=== PATIENT | female | born 1945 | race Caucasian/White ===

== ENCOUNTER 2017-01-22 16:39 | Inpatient (IN) | payer OTHER ==
[~2017-01-22] VITALS: Ht 162.6 cm; Wt 61.0 kg
--- NOTE | 2017-01-22 17:35 | DIAGNOSTIC IMAGING REPORT ---
PROCEDURE: XR CHEST 1 VIEW INDICATION: PNEUMONIA TECHNIQUE: Single view chest. 1710 hours COMPARISON: None. FINDINGS: Status post median sternotomy. Normal heart size. Clips of prior CABG. Normal aortic contour. Calcified right mediastinal lymph node. Low lung volumes with atelectatic change at the left lung base. No significant pleural effusion or pneumothorax. Intact osseous structures. IMPRESSION: 1. Plate-like left base atelectasis. 2. Status post CABG. 3. Low lung volumes.
--- NOTE | 2017-01-22 19:06 | ED CLINICAL REPORT ---
Clinical Report - Physicians/Mid Levels [facility] [address] [place] [address] 01/22/2017 16:39 Patient: STORMY PARRA Time Seen: 16:47; initial patient contact. Arrived- By ambulance. Historian- EMS personnel and family. History limited by dementia. Physical Exam limited by dementia. HISTORY OF PRESENT ILLNESS Chief Complaint: COUGH. This started about 1 week ago and is still present. It was gradual in onset. The patient has had a cough and fever. No sputum production, difficulty breathing, chills or nasal congestion or discharge. No sinus drainage. Additional history - The patient has had contact with a sick individual. Similar symptoms previously: None. Recent medical care: Not recently seen/assessed. REVIEW OF SYSTEMS No nausea, vomiting, diarrhea, abdominal pain or urinary frequency. No hematuria or difficulty with urination. All systems otherwise negative, except as recorded above. PAST HISTORY Parkinson's Disease. Dementia. Asthma. Pneumonia. ADDITIONAL SURGERIES: Carpal Tunnel Surgery. Coronary Artery Bypass Graft. Femur fracture and jesenia placement RLE. --. SOCIAL HISTORY Never smoker. No alcohol use or drug use. ADDITIONAL NOTES The nursing notes have been reviewed. PHYSICAL EXAM Vital Signs: 01/22/2017 16:42 BP: 124/83. HR: 103. RR: 20. O2 saturation: 94%. Temp: 100.6 F. Have been reviewed. Blood pressure normal. Tachycardic. Respiratory rate normal. Febrile. Oxygen saturation low. Appearance: No acute distress. Lethargic. Eyes: Eyes normal inspection. ENT: Dry mucous membranes present. No trouble handling secretions. CVS: Normal heart rate and rhythm. Heart sounds normal. Respiratory: No respiratory distress. Breath sounds normal. Abdomen: Soft and nontender. No organomegaly. Back: Normal inspection. No CVA tenderness. Skin: Skin warm and dry. Normal skin color. Extremities: No calf tenderness. No lower extremity edema. LABS, X-RAYS, AND EKG Chest X-ray: (1. Plate-like left base atelectasis. 2. Status post CABG. 3. Low lung volumes.). Views: AP. Technique: poor inspiration. The X-rays were independently viewed by me, interpreted by the radiologist and discussed with the radiologist. Prior films were not available for comparison. Laboratory Tests: UA-Culture if indicated: (JULISSA: 01/22/2017 17:14) ( [facility] 01/22/2017 17:42) Final results Test Result Flag Units (Reference) URINE COLOR YELLOW URINE APPEARANCE SL CLOUDY URINE GLUCOSE NEGATIVE (NEGATIVE) URINE BILIRUBIN NEGATIVE (NEGATIVE) URINE KETONE NEGATIVE (NEGATIVE) URINE SPECIFIC GRAVITY 1.020 (1.010-1.030) URINE PH 6.0 (5.0-8.0) URINE PROTEIN 1+ (NEGATIVE) URINE UROBILINOGEN 2.0 EU/dL (0.2-1.0) The urobilinogen reagent area may react with interferingsubstances known to react with Jose's reagent such asp-aminosalicylic acid and sulfonamides. Atypical colorreactions may be obtained in the presence of highconcentrations of p-aminobenzoic acid. The absence ofurobilinogen cannot be determined with this test. URINE NITRITE POSITIVE (NEGATIVE) URINE BLOOD TRACE-INTACT (NEGATIVE) URINE LEUK ESTERASE POSITIVE (NEGATIVE) URINE RBC NONE SEEN rbc/hpf (0-1) URINE WBC 75-100 wbc/hpf (0-1) URINE EPITHELIAL CELLS 0-1 EPI/hpf (0-5) URINE BACTERIA FEW (1+) (NONE SEEN) URINE COMMENT CULTURE INDICATED 1+ MUCUSURINE CULTURES ARE SET-UP BASED ON THE FOLLOWING CRITERIA:POSITIVE NITRITEPOSITIVE LEUKOCYTE ESTERASEGREATER THAN 10 WHITE BLOOD CELLSMODERATE (2+) OR GREATER BACTERIA CBC w Diff: (JULISSA: 01/22/2017 16:30) ( [facility] 01/22/2017 17:06) Final results Test Result Flag Units (Reference) WHITE BLOOD COUNT 12.9 H K/uL (4.5-11.5) RED BLOOD COUNT 4.82 M/uL (4.00-5.20) HEMOGLOBIN 14.1 gm/dL (12.0-16.0) HEMATOCRIT 44.5 % (36.0-46.0) MEAN CELL VOLUME 92 fL (80-100) MEAN CORPUSCULAR HGB 29 pg (26-34) MEAN CORPUSCULAR HGB CONC 32 g/dL (31-37) RED CELL DISTRIBUTION WIDTH 17.6 H % (11.6-14.8) PLATELET COUNT 190 K/uL (150-400) LYMPH % 16.0 L % (25-40) MONO % 5.3 % (3-14) GRANULOCYTE % 78.7 (53-90) [id number]: (JULISSA: 01/22/2017 16:30) ( [facility] 01/22/2017 17:38) Final results Test Result Flag Units (Reference) LACTIC ACID SEPSIS PROTOCOL 1.3 mmol/L (0.4-2.0) [id number]: (JULISSA: 01/22/2017 16:30) ( [facility] 01/22/2017 17:27) Final results Test Result Flag Units (Reference) PROCALCITONIN <0.5 ng/mL (0-0.5) PCT Concentration: Interpretation : Risk/option for action PCT <=0.5 ng/mL : Systemic : Low risk forinfection(sepsis): progression to severeis not likely. : systemic infection.Local bacterial : CAUTION-PCT levelsinfection is : below 0.5 ng/mL do notpossible. : exclude an infection,because localizedinfections (withoutsystemic signs) may beassociated with suchlow levels. If PCT ismeasured very earlyafter a bacterialchallenge (usually <6hours), these valuesmay still be low. Inthis case PCT shouldbe re-assessed 6-24hours later. PCT >0.5 and : Systemic infection: Moderate risk for<= 2 ng/mL : (sepsis) is : progression to severepossible, but : systemic infection.other conditions : The patient should beare known to : closely monitoredelevate PCT. : both clinically andby re-assessing PCTwithin 6-24 hours. PCT > 2 ng/mL : Systemic infection: High risk for(sepsis) is likely: progression to severeunless other : systemic infection.causes are known. : PCT >= 10 ng/mL : Important systemic: High likelihood ofinflammatory : severe sepsis orresponse, almost : septic shock.exclusively due to:severe bacterial :sepsis or septic :shock. : CMP: (JULISSA: 01/22/2017 16:30) ( MsgRcvd 01/22/2017 17:22) Final results Test Result Flag Units (Reference) GLUCOSE 118 H mg/dL (70-110) BUN 12 mg/dL (7-18) CREATININE 0.8 mg/dL (0.6-1.3) Estimated GFR >60 mL/min Estimated GFR- >60 mL/min Note: Persistent reduction over 3 months in eGFR<60 mL/min/1.73 m2 defines CKD. Patients with eGFR values>=60 mL/min/1.73 m2 may also have CKD if evidence ofpersistent proteinuria. Additional information may be foundat www.kidney.org. SODIUM 142 mmol/L (136-145) POTASSIUM 3.3 L mmol/L (3.5-5.1) CHLORIDE 104 mmol/L (98-107) CARBON DIOXIDE 25 mmol/L (21-32) CALCIUM 8.2 L mg/dL (8.5-10.1) TOTAL PROTEIN 6.2 L g/dL (6.4-8.2) ALBUMIN 3.0 L g/dL (3.3-5.0) BILIRUBIN, TOTAL 0.6 mg/dL (0.0-1.0) ALKALINE PHOSPHATASE 108 U/L (46-116) AST (SGOT) 22 U/L (15-37) ALT (SGPT) 27 U/L (12-78) . PROGRESS AND PROCEDURES Disposition: Admitted to Acute Care. Condition: stable. CLINICAL IMPRESSION Sepsis with altered mental status. No shock or acute organ dysfunction. Acute urinary tract infection with cystitis. INSTRUCTIONS Your Current Medications: CONTINUE TAKING THE FOLLOWING MEDICATIONS: Advair Diskus Inhalation. BusPIRone HCl Oral. Fexofenadine HCl Oral. OLANZapine Oral. Primidone Oral. Spiriva HandiHaler Inhalation. Follow-up: Screening today revealed the patient's blood pressure to be in the normal range. (Electronically signed by Jackson Alanis Dr. 01/22/2017 22:17)
--- NOTE | 2017-01-22 19:06 | ED ORDER SUMMARY ---
..... Patient: STORMY PARRA OrderSheet [facility] VisitID: [id number] [place] [address] 71y, F Registration Date/Time: 01/22/2017 ORDER SHEET Weight: 65.7 kg (stated) Allergies: Penicillins, Sulfa Antibiotics, Amoxicillin, Codeine GENERAL ORDERS: Chest 1V Urgent (16:48 01/22/2017 Kayla Oquendo) (Ack 16:50 LNations ER Tech1) (17:03 KWilliams R.N.) Blood Culture (No) (N/A) Urgent (16:48 01/22/2017 Kayla Oquendo) (Ack 16:50 LNations ER Tech1) (17:03 KWilliams R.N.) CBC w Diff Urgent (16:49 01/22/2017 Kayla Oquendo) (Ack 16:50 LNations ER Tech1) (17:03 KWilliams R.N.) CMP Urgent (16:49 01/22/2017 Kayla Oquendo) (Ack 16:50 LNations ER Tech1) (17:03 KWilliams R.N.) UA-Culture if indicated Urgent (16:49 01/22/2017 Kayla Oquendo) (Ack 16:50 LNations ER Tech1) (17:22 KWilliams R.N.) Lactic Acid for Sepsis Protocol Urgent (16:49 01/22/2017 Kayla Oquendo) (Ack 16:50 LNations ER Tech1) (17:03 KWilliams R.N.) PCT (Procalcitonin) Urgent (16:49 01/22/2017 Kayla Oquendo) (Ack 16:50 LNations ER Tech1) (17:03 KWilliams R.N.) D-Dimer Urgent (17:56 01/22/2017 Kayla Oquendo) (Ack 18:11 LNations ER Tech1) (19:58 CBradburn R.N.) MEDICATION ORDERS: IV FLUIDS: IV Saline Lock (16:49 01/22/2017 Kayla Oquendo) (17:03 KWilliams R.N.) IV NS : initial bolus none -, then 1000 mL/hr for X1 (NOW) (17:28 01/22/2017 Kayla Oquendo) (17:30 Kitty R.N.) Levofloxacin IV 750 mg/150 mL (NOW) (17:55 01/22/2017 Kayla Oquendo) (18:20 Kitty R.N.) ORDER SHEET NOTES: [Electronically signed by Herminia Barton R.N. (21:01/22/2017)] [Electronically signed by Jackson Alanis Dr. (22:17 01/22/2017)] [Electronically locked/signed by Herminia Barton R.N. (21:01/22/2017)]
--- NOTE | 2017-01-22 19:06 | ED CLINICAL REPORT ---
Clinical Report - Physicians/Mid Levels [facility] [address] [place] [address] 01/22/2017 16:39 Patient: STORMY PARRA Time Seen: 16:47; initial patient contact. Arrived- By ambulance. Historian- EMS personnel and family. History limited by dementia. Physical Exam limited by dementia. HISTORY OF PRESENT ILLNESS Chief Complaint: COUGH. This started about 1 week ago and is still present. It was gradual in onset. The patient has had a cough and fever. No sputum production, difficulty breathing, chills or nasal congestion or discharge. No sinus drainage. Additional history - The patient has had contact with a sick individual. Similar symptoms previously: None. Recent medical care: Not recently seen/assessed. REVIEW OF SYSTEMS No nausea, vomiting, diarrhea, abdominal pain or urinary frequency. No hematuria or difficulty with urination. All systems otherwise negative, except as recorded above. PAST HISTORY Parkinson's Disease. Dementia. Asthma. Pneumonia. ADDITIONAL SURGERIES: Carpal Tunnel Surgery. Coronary Artery Bypass Graft. Femur fracture and jesenia placement RLE. --. SOCIAL HISTORY Never smoker. No alcohol use or drug use. ADDITIONAL NOTES The nursing notes have been reviewed. PHYSICAL EXAM Vital Signs: 01/22/2017 16:42 BP: 124/83. HR: 103. RR: 20. O2 saturation: 94%. Temp: 100.6 F. Have been reviewed. Blood pressure normal. Tachycardic. Respiratory rate normal. Febrile. Oxygen saturation low. Appearance: No acute distress. Lethargic. Eyes: Eyes normal inspection. ENT: Dry mucous membranes present. No trouble handling secretions. CVS: Normal heart rate and rhythm. Heart sounds normal. Respiratory: No respiratory distress. Breath sounds normal. Abdomen: Soft and nontender. No organomegaly. Back: Normal inspection. No CVA tenderness. Skin: Skin warm and dry. Normal skin color. Extremities: No calf tenderness. No lower extremity edema. LABS, X-RAYS, AND EKG Chest X-ray: (1. Plate-like left base atelectasis. 2. Status post CABG. 3. Low lung volumes.). Views: AP. Technique: poor inspiration. The X-rays were independently viewed by me, interpreted by the radiologist and discussed with the radiologist. Prior films were not available for comparison. Laboratory Tests: UA-Culture if indicated: (JULISSA: 01/22/2017 17:14) [facility] Final results Test Result Flag Units (Reference) URINE COLOR YELLOW URINE APPEARANCE SL CLOUDY URINE GLUCOSE NEGATIVE (NEGATIVE) URINE BILIRUBIN NEGATIVE (NEGATIVE) URINE KETONE NEGATIVE (NEGATIVE) URINE SPECIFIC GRAVITY 1.020 (1.010-1.030) URINE PH 6.0 (5.0-8.0) URINE PROTEIN 1+ (NEGATIVE) URINE UROBILINOGEN 2.0 EU/dL (0.2-1.0) The urobilinogen reagent area may react with interferingsubstances known to react with Jose's reagent such asp-aminosalicylic acid and sulfonamides. Atypical colorreactions may be obtained in the presence of highconcentrations of p-aminobenzoic acid. The absence ofurobilinogen cannot be determined with this test. URINE NITRITE POSITIVE (NEGATIVE) URINE BLOOD TRACE-INTACT (NEGATIVE) URINE LEUK ESTERASE POSITIVE (NEGATIVE) URINE RBC NONE SEEN rbc/hpf (0-1) URINE WBC 75-100 wbc/hpf (0-1) URINE EPITHELIAL CELLS 0-1 EPI/hpf (0-5) URINE BACTERIA FEW (1+) (NONE SEEN) URINE COMMENT CULTURE INDICATED 1+ MUCUSURINE CULTURES ARE SET-UP BASED ON THE FOLLOWING CRITERIA:POSITIVE NITRITEPOSITIVE LEUKOCYTE ESTERASEGREATER THAN 10 WHITE BLOOD CELLSMODERATE (2+) OR GREATER BACTERIA CBC w Diff: (JULISSA: 01/22/2017 16:30) ( [facility]:06) Final results Test Result Flag Units (Reference) WHITE BLOOD COUNT 12.9 H K/uL (4.5-11.5) RED BLOOD COUNT 4.82 M/uL (4.00-5.20) HEMOGLOBIN 14.1 gm/dL (12.0-16.0) HEMATOCRIT 44.5 % (36.0-46.0) MEAN CELL VOLUME 92 fL (80-100) MEAN CORPUSCULAR HGB 29 pg (26-34) MEAN CORPUSCULAR HGB CONC 32 g/dL (31-37) RED CELL DISTRIBUTION WIDTH 17.6 H % (11.6-14.8) PLATELET COUNT 190 K/uL (150-400) LYMPH % 16.0 L % (25-40) MONO % 5.3 % (3-14) GRANULOCYTE % 78.7 (53-90) [id number]: (JULISSA: 01/22/2017 16:30) ( [facility] 01/[facility] 17:38) Final results Test Result Flag Units (Reference) LACTIC ACID SEPSIS PROTOCOL 1.3 mmol/L (0.4-2.0) [id number]: (JULISSA: 01/22/2017 16:30) ( PagRcvd 01/22/2017 17:27) Final results Test Result Flag Units (Reference) PROCALCITONIN <0.5 ng/mL (0-0.5) PCT Concentration: Interpretation : Risk/option for action PCT <=0.5 ng/mL : Systemic : Low risk forinfection(sepsis): progression to severeis not likely. : systemic infection.Local bacterial : CAUTION-PCT levelsinfection is : below 0.5 ng/mL do notpossible. : exclude an infection,because localizedinfections (withoutsystemic signs) may beassociated with suchlow levels. If PCT ismeasured very earlyafter a bacterialchallenge (usually <6hours), these valuesmay still be low. Inthis case PCT shouldbe re-assessed 6-24hours later. PCT >0.5 and : Systemic infection: Moderate risk for<= 2 ng/mL : (sepsis) is : progression to severepossible, but : systemic infection.other conditions : The patient should beare known to : closely monitoredelevate PCT. : both clinically andby re-assessing PCTwithin 6-24 hours. PCT > 2 ng/mL : Systemic infection: High risk for(sepsis) is likely: progression to severeunless other : systemic infection.causes are known. : PCT >= 10 ng/mL : Important systemic: High likelihood ofinflammatory : severe sepsis orresponse, almost : septic shock.exclusively due to:severe bacterial :sepsis or septic :shock. : CMP: (JULISSA: 01/22/2017 16:30) ( MsgRcvd 01/22/2017 17:22) Final results Test Result Flag Units (Reference) GLUCOSE 118 H mg/dL (70-110) BUN 12 mg/dL (7-18) CREATININE 0.8 mg/dL (0.6-1.3) Estimated GFR >60 mL/min Estimated GFR- >60 mL/min Note: Persistent reduction over 3 months in eGFR<60 mL/min/1.73 m2 defines CKD. Patients with eGFR values>=60 mL/min/1.73 m2 may also have CKD if evidence ofpersistent proteinuria. Additional information may be foundat www.kidney.org. SODIUM 142 mmol/L (136-145) POTASSIUM 3.3 L mmol/L (3.5-5.1) CHLORIDE 104 mmol/L (98-107) CARBON DIOXIDE 25 mmol/L (21-32) CALCIUM 8.2 L mg/dL (8.5-10.1) TOTAL PROTEIN 6.2 L g/dL (6.4-8.2) ALBUMIN 3.0 L g/dL (3.3-5.0) BILIRUBIN, TOTAL 0.6 mg/dL (0.0-1.0) ALKALINE PHOSPHATASE 108 U/L (46-116) AST (SGOT) 22 U/L (15-37) ALT (SGPT) 27 U/L (12-78) . PROGRESS AND PROCEDURES Disposition: Admitted to Acute Care. Condition: stable. CLINICAL IMPRESSION Sepsis with altered mental status. No shock or acute organ dysfunction. Acute urinary tract infection with cystitis. INSTRUCTIONS Your Current Medications: CONTINUE TAKING THE FOLLOWING MEDICATIONS: Advair Diskus Inhalation. BusPIRone HCl Oral. Fexofenadine HCl Oral. OLANZapine Oral. Primidone Oral. Spiriva HandiHaler Inhalation. Follow-up: Screening today revealed the patient's blood pressure to be in the normal range. (Electronically signed by Jackson Alanis Dr. 01/22/2017 22:17)
--- NOTE | 2017-01-22 19:06 | ED NURSING NOTES ---
Clinical Report - Nurses [facility] [address] [place] [address] 01/22/2017 16:39 Patient: STORMY PARRA TRIAGE Triage time 1636. Acuity: LEVEL 2. Chief Complaint: COUGH and FEVER. No acute distress. SEPSIS SCREEN: Sepsis Screen: positive. Infection suspected/documented. Heart rate greater than 90, respiratory rate greater than 20 and acute mental status change. Physician notified and protocol initiated. Temperature not greater than 38.3 degrees C (101 degrees F). ELSIE COMA SCORE: Elsie Coma Scale: 14- eyes open spontaneously (4); best verbal response- disoriented (4); best motor response- obeys commands (6). --16:52 Dano Dave R.N. 16:42 01/22/17. BP: 124/83. HR: 103. RR: 20. O2 saturation: 94% on nasal cannula at 4 liters/minute. Temp: 100.6 F. Pain level now 0/10. --16:52 Dano Dave R.N. Weight: 65.7 kg stated. Height/Length: 64 inches Per Patient. BMI: 24.9. --16:45 Dano Dave R.N. Medications Advair Diskus Inhalation. --16:48 Dano Dave R.N. BusPIRone HCl Oral. --16:49 Dano Dave R.N. Fexofenadine HCl Oral. --16:49 Dano Dave R.N. OLANZapine Oral. --16:49 Dano Dave R.N. Primidone Oral. --16:49 Dano Dave R.N. Spiriva HandiHaler Inhalation. --16:49 Dano Dave R.N. Medication/allergy information source: the patient's family. --16:52 Dano Dave R.N. Allergies Penicillins. --16:49 Dano Dave R.N. Sulfa Antibiotics. --16:49 Dano Dave R.N. Amoxicillin. --16:49 Dano Dave R.N. Codeine. --16:50 Dano Dave R.N. History Arrived by EMS. Historian: EMS and family. Accompanied by family. Primary physician (raymundo). ( code sepsis. presented to [facility] with cold x9 days, 100 degree temp, given 1 gram tylenol at clinic. rhonchi per medics. Daughter states patient is markedly weaker than baseline). Onset. (9 days ago). Treatment MEDICAL TECHNOLOGIST MICROBIOLOGY: Took Tylenol. (1 gram at [facility]). EMS treatment MEDICAL TECHNOLOGIST MICROBIOLOGY verbally communicated. See EMS report. IV fluid given (500 mL bolus). BP: 102/60. HR: 110. RR: 16. Temp: 100. O2 saturation: 94 % on oxygen (at 4 liters/minute). Upon arrival patient awake and lethargic. SOCIAL HX: Never smoker. No alcohol use or drug use. ABUSE ASSESSMENT: No report of abuse. NUTRITIONAL RISK ASSESSMENT: The nutritional risk assessment revealed no deficiencies. FUNCTIONAL ASSESSMENT: Functional assessment: no impairments noted. LEARNING NEEDS ASSESSMENT: The learning needs assessment revealed no barriers. FALL RISK ASSESSMENT: Fall risk assessment completed. Risk factors identified include patient age greater than 65 years. SKIN INTEGRITY ASSESSMENT: Skin integrity risk assessment completed. No skin integrity risk identified. --16:52 Dano Dave R.N. PROBLEMS: Parkinson's Disease. Dementia. Asthma. Pneumonia. --16:52 Dano Dave R.N. ADDITIONAL SURGERIES: Carpal Tunnel Surgery. Coronary Artery Bypass Graft. Femur fracture and jesenia placement RLE. --16:52 Dano Dave R.N. Interventions ID band on patient. To treatment room. --16:52 Dano Dave R.N. SEPSIS protocol initiated. --16:52 Dano Dave R.N. 16:29 01/22/2017 Site #1 started prior to arrival by EMS via IV in the right with an 20g angiocath, with aseptic technique and good blood return; one attempt. Saline lock flushed with 10 mL saline. --16:44 Dano Dave R.N. PHYSICAL ASSESSMENT To room via stretcher. GENERAL / NEURO / PSYCH: (lethargic). She is pale, is disoriented and has poor eye contact. The patient is disoriented to situation. RESPIRATORY: Mild respiratory distress. Cough. CVS: Cardiac rhythm: sinus tachycardia. Capillary refill is greater than 2 seconds. GI / : Abdomen soft. SKIN: Skin is warm and dry. --16:54 Dano Dave R.N. NURSING PROGRESS NOTES The plan of care for this patient has been created. Patient gowned. Head of bed elevated. Call light placed in reach. Bed placed in lowest position. Brakes of bed on. Patient ready for evaluation- chart flagged. --16:55 Dano Dave R.N. 16:54 01/22/17. BP: 135/71. HR: 101. RR: 24. O2 saturation: 95%. Pain level now 0/10. --16:55 Dano Dave R.N. 16:54 01/22/2017 Site #2 started via IV in the right antecubital space with an 20g angiocath, with aseptic technique and good blood return; one attempt. Blood drawn: rainbow set and cultures x1. Labeled in the presence of the patient and sent to the lab. Saline lock flushed with 10 mL saline. --17:04 Dano Dave R.N. 17:22 01/22/17. BP: 131/69. HR: 99. RR: 21. O2 saturation: 95% on nasal cannula at 4 liters/minute. Temp: 37.6 C. Pain level now 0/10. --17:23 Dano Dave R.N. Reassessment after oxygen administered and intervention. She is resting quietly. ( daughter at bedside, updated on plan of care). --17:23 Dano Dave R.N. Cardiac rhythm: normal sinus rhythm. --17:23 Dano Dave R.N. 17:10. 14 fr temperature sensing starkey catheter for close monitoring of sepsis. Data sent to monitor. During procedure hand hygiene observed and sterile equipment and aseptic technique used. Return of 150 mL yellow-colored clear urine; odor is normal; attached to bedside drainage bag positioned below the bladder and secured with stabilization device. She tolerated procedure well. Patient ID band checked for patient name and birthdate: family confirmed. Catheterized urine collected with return of yellow-colored clear urine; odor is normal; sample sent to lab for urinalysis and culture. Specimen labeled in the presence of the patient. --17:25 Dano Dave R.N. ( NS liter from EMS completed at 1650). --17:29 Dano Dave R.N. 16:51 01/22/2017 Started bag #2 1000 mL IV Fluids IV NS (Saline); at 999 mL/hr over 1 hour(s) via site #1. Allergies verified and confirmed 5 rights. IV patency established. IV site checked: no pain, redness, or swelling. IV flushed thoroughly pre- and post-medication administration. --17:30 Dano Dave R.N. Cardiac rhythm: sinus tachycardia. --17:32 Dano Dave R.N. 17:30 01/22/17. BP: 131/69. HR: 102. RR: 22. O2 saturation: 93% on nasal cannula at 4 liters/minute. Temp: 37.9 C. Pain level now 0/10. --17:32 Dano Dave R.N. 18:00 01/22/2017 IV Fluids IV NS Discontinued: bag #2 infused. Total amount infused: 1000 mL. IV patency established. IV site checked: no pain, redness, or swelling. IV flushed thoroughly. --18:20 Dano Dave R.N. 18:15 01/22/2017 Started 750 mg of Levofloxacin IVPB in bag #1 150 mL; at 100 mL/hr over 1.5 hour(s) via site #1 via IV pump. Allergies verified and confirmed 5 rights. IV patency established. IV site checked: no pain, redness, or swelling. IV flushed thoroughly pre- and post-medication administration. Completed per protocol. --18:20 Dano Dave R.N. Care transferred and report given (CIARA Hope). --19:08 Dano Dave R.N. 19:59 01/22/2017 Levofloxacin IVPB Discontinued: completed. Total amount infused: 150 mL. IV patency established. IV site checked: no pain, redness, or swelling. IV flushed thoroughly. --19:59 Herminia Barton R.N. 20:00 01/22/17. BP: 127/68 taken on the left arm, while lying. HR: 92 (regular and normal rate). RR: 18 (regular). O2 saturation: 95%. Temp: 37.4 C. Pain level now: 0/10. --20:15 Herminia Barton R.N. The patient reports no complaints and she is calm and resting quietly. ( family at bedside, no distress noted, will continue to monitor). RESPIRATORY: No respiratory distress. Call light placed in reach. --20:15 Herminia Barton R.N. 21:14 01/22/17. BP: 117/66 taken on the right arm, while lying. HR: 92 (regular and normal rate). RR: 16 (regular and unlabored). O2 saturation: 93%. Temp: 37.2 C. Pain level now: 0/10. Additional comments: temjake starkey. --21:16 Herminia Barton R.N. The patient is calm and resting quietly. Overall patient status is improved. ( resting quietly no distress noted). RESPIRATORY: No respiratory distress. Breath sounds normal. SKIN: Skin is warm and dry. Skin color within normal limits. --21:16 Herminia Barton R.N. 21:17 01/22/2017 Site #[address] upon admission; patent, no pain and no signs of infection or infiltration. Good blood return present. Flushed with 10 mL saline; flushes easily. --21:17 Herminia Barton R.N. 21:17 01/22/2017 Site #[address] upon admission; patent, no pain and no signs of infection or infiltration. Good blood return present. Flushed with 10 mL saline; flushes easily. --21:17 Herminia Barton R.N. 21:01/22/2017 IV Saline Lock Drip IV Continued: upon admission at the rate of 0 mL/hr. 0 mL remaining bag #1. IV patency established. IV site checked: no pain, redness, or swelling. IV flushed thoroughly. --:17 Herminia Barton R.N. Intake & Output Urine: 400 mL 21:24, with return of azucena-colored clear urine; attached to urimeter. --:25 Herminia Barton R.N. DISPOSITION / DISCHARGE Departure time: :27. Admitted to Acute Care (206 21:25). Transported via stretcher by tech with O2. Report was given to a nurse via a phone call. Report included patient's care, treatment, medications, reviewed medication reconcilliation, and condition (including any recent changes or anticipated changes). All questions were answered. Report was acknowledged and care was transferred. (Johana FRANK @[id number]). Patient's personal items; items were given to the family. --:27 Herminia Barton R.N. 21:25 01/22/17. BP: deferred. HR: deferred. RR: deferred. O2 saturation: deferred. Temp: deferred. Pain level now deferred. --:27 Herminia Barton R.N. Locked/Released at 01/22/2017 21:28 by Herminia Barton R.N.
--- NOTE | 2017-01-22 19:06 | ED ORDER SUMMARY ---
..... Patient: STORMY PARRA OrderSheet [facility] VisitID: [id number] [place] [address] 71y, F Registration Date/Time: 01/22/2017 ORDER SHEET Weight: 65.7 kg (stated) Allergies: Penicillins, Sulfa Antibiotics, Amoxicillin, Codeine GENERAL ORDERS: Chest 1V Urgent (16:48 01/22/2017 Kayla Oquendo) (Ack 16:50 LNations ER Tech1) (17:03 KWilliams R.N.) Blood Culture (No) (N/A) Urgent (16:48 01/22/2017 Kayla Oquendo) (Ack 16:50 LNations ER Tech1) (17:03 KWilliams R.N.) CBC w Diff Urgent (16:49 01/22/2017 Kayla Oquendo) (Ack 16:50 LNations ER Tech1) (17:03 KWilliams R.N.) CMP Urgent (16:49 01/22/2017 Kayla Oquendo) (Ack 16:50 LNations ER Tech1) (17:03 KWilliams R.N.) UA-Culture if indicated Urgent (16:49 01/22/2017 Kayla Oquendo) (Ack 16:50 LNations ER Tech1) (17:22 KWilliams R.N.) Lactic Acid for Sepsis Protocol Urgent (16:49 01/22/2017 Kayla Oquendo) (Ack 16:50 LNations ER Tech1) (17:03 KWilliams R.N.) PCT (Procalcitonin) Urgent (16:49 01/22/2017 Kayla Oquendo) (Ack 16:50 LNations ER Tech1) (17:03 KWilliams R.N.) D-Dimer Urgent (17:56 01/22/2017 Kayla Oquendo) (Ack 18:11 LNations ER Tech1) (19:58 CBradburn R.N.) MEDICATION ORDERS: IV FLUIDS: IV Saline Lock (16:49 01/22/2017 Kayla Oquendo) (17:03 KWilliams R.N.) IV NS : initial bolus none -, then 1000 mL/hr for X1 (NOW) (17:28 01/22/2017 Kayla Oquendo) (17:30 Kitty R.N.) Levofloxacin IV 750 mg/150 mL (NOW) (17:55 01/22/2017 Kayla Oquendo) (18:20 Kitty R.N.) ORDER SHEET NOTES: [Electronically signed by Herminia Barton R.N. (21:01/22/2017)] [Electronically signed by Jackson Alanis Dr. (22:17 01/22/2017)] [Electronically locked/signed by Herminia Barton R.N. (21:01/22/2017)]
--- NOTE | 2017-01-22 21:26 | Progress Note ---
Subjective General Admission History and Physical Examination Acute care inpatient on telemetry Patient Name: Patricia George Admission Date: January 22, 2017 Primary Care Provider: Dr. Tristan Rosas MD ([place]) Attending Physician: Rigoberto Myers M.D. Admitting Physician: Rigoberto Myers M.D. Code Status: No code Room: SUBJECTIVE Historian: Daughter or PONazario Eason Reliability: Reliability. Patient with a few spoken words Chief Complaint: Weakness Dyspnea Activities less than Baseline History of Present Illness: The patient is a 71-year-old white female with a past medical history of asthma and obstructive lung disease allergies, coronary artery disease (status post CABG 7 vessel greater than 20 years ago), Parkinson's disease, dementia who is admitted with cough, dyspnea rapid breathing and in addition she's had a decline from her normal baseline. Daughter reports that she's been unable to perform general activities that she was performing weeks prior. Seems to be weak needing more assistance. Over a week ago had a few bouts of diarrhea. Decreasing urination. Seems to be more dyspneic having more difficult time with breathing. Seems to be having rapid breathing and associated cough. Daughter reports that the cough has been rattly and wet concern for progressive changes in her airway. Normally under good airway control with current inhalers; but over the past week having decline in her airway. Patient was seen in the [facility] ED. Patient was found to be hypoxic on room air therefore she was started on oxygen therapy to bring her sats greater than 92%. Patient is not on home O2. Patient was also given nebulized albuterol and ipratropium with mild benefit. Labs show an elevated white count, vital showing tachycardia, tachypnea, and fever 100.6. Patient was ruled as a service with potential urosepsis. The urinalysis showing nitrates and positive for leuk esterase. [facility] ED evaluation was consistent with URI, UTI, potential urosepsis (meeting sirs criteria), The majority of the history is through the patient's daughter . Normally patient is able to get up and out of bed to use the restroom eat on her own, and carry on limited conversation. The past week she's had a decline in her normal function. Patient was diagnosed to mention more than 6 years ago. Patient is recently been under the care of her youngest daughter Yumi for general needs. Patient's daughter Yumi is a POA along with her sister Lakesha in [place] who also shares the rights. Patient has a history of Parkinson's disease with limited treatment options. Patient is also treated for asthma. PAST MEDICAL HISTORY Illnesses: 1. Asthma obstructive lung disease 2. Dementia 3. Parkinson's disease Allergies: 1. No known drug allergies Medications: 1. Buspirone 7.5 mg by mouth twice a day 2. Fexofedadine 180 mg by mouth daily 3. Olanzapine 5 mg 1 tab by mouth twice a day 4. Advair 500/50 one puff twice per day 5. Fluticasone nasal spray 1 puff each nostril daily 6. Spiriva 2 puffs by mouth each day 7. Primidone 50 mg by mouth twice a day Surgery: 1. Carpal tunnel surgery 2. Coronary artery bypass surgery approximately 20 years ago 7 vessel 3. Femur fracture jesenia placement right side 4. Hip fracture right side prosthetic placement Injuries: 1. Injury to the hip and leg Hospitalizations: 1. Hospitalization for the illnesses and injuries sustained as noted above. FAMILY HISTORY Parents: 1. Father, father, passed from illness related to heart. 2. Mother passed at the age of 91; Alzheimer's; complications from a traumatic fall Children: 1. 2 grown children Daughter Yumi is POA, lives in [place] daughter Lakesha lives in [place] Other significant family history: Unknown SOCIAL HISTORY 1. Marital Status: 2. Synagogue: unknown 3. Education: High school 4 years college 4. 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 Occupational health exposures: unknown HABITS 1. Tobacco: none 2. Drugs: none 3. Alcohol: none 4. Caffeine: unknown HEALTH SUPERVISION Item/Test Followed by Dr. Alison Shields Health supervision measures are unknown. IMMUNIZATIONS: Daughter states that they do not promote vaccinations ADVANCED DIRECTIVES: 1. Living well: Daughter reports that there is apparently living well. 2. POLST: unavailable 3. Code Status: No code; short-term use of antibiotics short-term IV fluids Patient's wishes are not to be under any form of mechanical ventilation or to have resuscitative measures. 4. Durable Power Data Base Design Analyst Health care: Lakesha Eason (daughter) 5. Donor card: Available donor card REVIEW OF SYSTEMS Remarkable for those things stated in the history of present illness and past medical history. Review systems is limited due to patient's mood and verbalization ROS Constitutional Weakness, Malaise. Denies: Chills. ENT Other (cough). Respiratory Cough. Denies: Wheezing. Gastrointestinal Diarrhea. Denies: Melena, Hematochezia. Skin Denies: Rash. Physical Exam Vital Signs / I&Os BP: 124/83. HR: 103. RR: 20. O2 saturation: 94%. Temp: 100.6 F. General Appearance Oriented X3, Cooperative HEENT Moist mucous membranes Lungs Clear to auscultation, tachypnea, shallow respiration transmitted breath sounds No refills rhonchi or wheeze Neck No JVD, No masses Cardiovascular No murmurs, gallops, rubs, tachycardia Abdomen Soft, No tenderness, mild distention Extremities No clubbing, No edema Skin No Rashes Neurological No lateralizing signs Psych/Mental Status Mood normal, Confused LAB Results Laboratory Tests 01/22 01/22 01/22 01/22 1630 1630 1630 1655 Chemistry Plasma Sodium (136 - 145 mmol/L) 142 Plasma Potassium (3.5 - 5.1 mmol/L) 3.3 Plasma Chloride (98 - 107 mmol/L) 104 CO2 (Enzymatic) (21 - 32 mmol/L) 25 BUN (7 - 18 mg/dL) 12 Creatinine (0.6 - 1.3 mg/dL) 0.8 Est GFR ( Amer) (mL/min) >60 Est GFR (Non-Af Amer) (mL/min) >60 Glucose (70 - 110 mg/dL) 118 Lactic Acid (0.4 - 2.0 mmol/L) 1.3 Plasma Calcium (8.5 - 10.1 mg/dL) 8.2 Total Bilirubin (0.0 - 1.0 mg/dL) 0.6 AST (15 - 37 U/L) 22 ALT (12 - 78 U/L) 27 Alkaline Phosphatase (46 - 116 U/L) 108 Total Protein (6.4 - 8.2 g/dL) 6.2 Albumin (3.3 - 5.0 g/dL) 3.0 Procalcitonin (0 - 0.5 ng/mL) <0.5 Coagulation D-Dimer, Quantitative (0.27 - 0.52 ug/mLFEU) 0.42 Hematology WBC (4.5 - 11.5 K/uL) 12.9 RBC (4.00 - 5.20 M/uL) 4.82 Hgb (12.0 - 16.0 gm/dL) 14.1 Hct (36.0 - 46.0 %) 44.5 MCV (80 - 100 fL) 92 MCH (26 - 34 pg) 29 RDW (11.6 - 14.8 %) 17.6 Gran % (53 - 90) 78.7 Lymph % (Auto) (25 - 40 %) 16.0 [place] % (Auto) (3 - 14 %) 5.3 Plt Count, EDTA (150 - 400 K/uL) 190 PUBS MCHC (31 - 37 g/dL) 32 01/22 1714 Urines Urine Color YELLOW Urine Appearance SL CLOUDY Urine pH (5.0 - 8.0) 6.0 Ur Specific [place] (1.010 - 1.030) 1.020 Urine Protein (NEGATIVE) 1+ Urine Ketones (NEGATIVE) NEGATIVE Urine Blood (NEGATIVE) TRACE-INTACT Urine Nitrite (NEGATIVE) POSITIVE Urine Bilirubin (NEGATIVE) NEGATIVE Urine Urobilinogen (0.2 - 1.0 EU/dL) 2.0 Ur Leukocyte Esterase (NEGATIVE) POSITIVE Urine RBC (0 - 1 rbc/hpf) NONE SEEN Urine WBC (0 - 1 wbc/hpf) 75-100 Ur Epithelial Cells (0 - 5 EPI/hpf) 0-1 Urine Bacteria (NONE SEEN) FEW (1+) Urine Glucose (NEGATIVE) NEGATIVE Urine Comment CULTURE INDICATED Microbiology Date/Time Procedure - Status Source Growth 01/22 1714 Urine Culture - RECD URINE CATH 01/22 1655 Blood Culture - RECD BLOOD 01/22 1650 Blood Culture - RECD BLOOD Imaging Chest x-ray 1. Plate-like left base atelectasis. 2. Status post CABG. 3. Low lung volumes. Assessment and Plan Problem List 1. Hypoxia Plan Patient with recent symptomatic event. Likely infection involving upper airway and urine Patient SIRS criteria for probable urosepsis. Progressive respiratory illness and changes in general status from her normal baseline of asthma. Seen to require oxygen on admission. Patient hypoxic on room air. Plan to wean oxygen and maintain sats above 90% Continue with the DuoNeb's and albuterol as needed. Solu-Medrol 60 mg 3 times a day Ceftriaxone and Levaquin for airway. 2. Dyspnea Plan Patient found to be dyspneic on admission. Maintaining well on oxygen therapy Duo nebs every 6 hours. Continue with the Spiriva and the Advair has home-based measures for controlling asthma. 3. SIRS with acute organ dysfunction due to infectious process Plan Seen with fever and tachypnea tachycardia on admission Antibiotics 2 including ceftriaxone and Levaquin. Complete 7 days; following cultures Patient also found to have a UTI, awaiting cultures and sensitivities. Coverages at optimal 4. Sepsis Plan Defining urinary tract infection. Consider sepsis urologic consultation. Coverage appropriate. The patient met sepsis criteria with fever and elevated white count tachypnea and tachycardia and symptomatic response to illness. Need to improve patient above current status to normal baseline, prior to discharge. Patient's care at home is appropriate. 5. Parkinsons Plan History of Parkinson's; resistant to treatment. We'll continue with the patient's home formulary. Patient with declining mental status changes. Consider Lewey body dementia 6. Asthma Plan Discussed above. Hydrated. Continue to maintain oxygen saturations above 92%. Weaning O2 when appropriate. DuoNeb's every 6 hours Continue the Spiriva and the Advair. 7. Dementia Plan Patient with prolonged history of dementia in decline. Patient currently is on only antidepressant and a barbiturate for her mood and declining memory. Continue with the primidone as a oral medication from home Continue with the buspirone taken twice per day. Taking the olanzapine twice.. We'll watch and follow trends in mood. She has a higher level of activity currently seen. Patient will attempt to maintain baseline activity prior to discharge. Patient has promoted her living will to her family members both daughters Yumi Crowder. Patient before decline in self-care asked that she not be under life- sustaining measures. Current status: Fair poor Anticipated discharge date: 2-3 days Anticipated discharge placement: Home Patient care time: Time spent in chart review, patient interview, physical exam, CPOE, and care documentation: 70 minutes Visit to patient today: 1 Complexity of care: Moderate E&M Codes Admission: Inpt-High/23214 Urine Blood (NEGATIVE) TRACE-INTACT Urine Nitrite (NEGATIVE) POSITIVE Urine Bilirubin (NEGATIVE) NEGATIVE Urine Urobilinogen (0.2 - 1.0 EU/dL) 2.0 Ur Leukocyte Esterase (NEGATIVE) POSITIVE Urine RBC (0 - 1 rbc/hpf) NONE SEEN Urine WBC (0 - 1 wbc/hpf) 75-100 Ur Epithelial Cells (0 - 5 EPI/hpf) 0-1 Urine Bacteria (NONE SEEN) FEW (1+) Urine Glucose (NEGATIVE) NEGATIVE Urine Comment CULTURE INDICATED Microbiology Date/Time Procedure - Status Source Growth 01/22 171 Urine Culture - RECD URINE CATH 01/22 1655 Blood Culture - RECD BLOOD 01/22 165 Blood Culture - RECD BLOOD Imaging Chest x-ray 1. Plate-like left base atelectasis. 2. Status post CABG. 3. Low lung volumes.
[2017-01-22 21:45] VITALS: BP 99/54
[2017-01-22] MEDS ORDERED: BUSPIRONE HCL7.5 MG PO (22:00)
[2017-01-22] MEDS ORDERED: MYSOLINE50 MG PO (22:01)
[2017-01-22] MEDS ORDERED: ADVAIR DISKU1 INH (22:02)
[2017-01-22] MEDS ORDERED: OLANZAPINE5 MG PO (22:02)
--- NOTE | 2017-01-22 22:18 | ED MED RECONCILIATION SUMMARY ---
Patient: STORMY PARRA Medication Reconciliation Report [facility] VisitID: [id number] [address] [place] [address] 71y, F Registration Date/Time: 01/22/2017 Weight: 65.7 kg Height/Length: 64 in. BMI: 24.9 ALLERGIES: Amoxicillin, Codeine, Penicillins, Sulfa Antibiotics The patient's Home Medications are listed below: CONTINUE TAKING THE FOLLOWING MEDICATIONS: Advair Diskus Inhalation BusPIRone HCl Oral Fexofenadine HCl Oral OLANZapine Oral Primidone Oral Spiriva HandiHaler Inhalation The source(s) of the original Home Medication information: patient's family member The following Medications were given to the patient in the Emergency Department: IV NS IV Fluids bolus 0, then 999 mL/hr, administered: 01/22/2017 4:51:00 PM Levofloxacin [IVPB] IVPB bolus 0, then 750 mg 100 mL/hr, administered: 01/22/2017 6:15:00 PM The following Medications were prescribed to the patient: None.
--- NOTE | 2017-01-22 22:18 | ED MAR SUMMARY ---
..... Medication Administration Record [facility] [address] [place] [address] Patient: STORMY PARRA Visit ID: [id number] 71y, F Weight: 65.7 kg Height/Length: 64 in BMI: 24.9 ALLERGIES: Codeine, Amoxicillin, Sulfa Antibiotics, Penicillins Start 16:51 01/22/2017 Dano Dave RGabriel., Stop 18:00 01/22/2017 Dano Dave R.N. Medication Administered: IV NS (SALINE), Dose: IV Fluids over 1 hour(s), Rate: 999 mL/hr, Dispensed: 1000 mL bag, Site: #1 right. Medication Ordered: IV NS : initial bolus none -, then 1000 mL/hr for X1 (NOW). Start 18:15 01/22/2017 Dano Dave R.N., Stop 19:59 01/22/2017 Herminia Barton RGabriel. Medication Administered: LEVOFLOXACIN [IVPB], Dose: 750 mg IVPB over 1.5 hour(s), Rate: 100 mL/hr, Dispensed: 150 mL bag, Site: #1 right. Medication Ordered: Levofloxacin IV 750 mg/150 mL (NOW).
--- NOTE | 2017-01-22 22:18 | ED DISCHARGE INSTRUCTIONS ---
Patient: STORMY PARRA General Instructions [facility] VisitID: [id number] [address] [place] [address] 71y, F Registration Date/Time: 01/22/2017 Sepsis with altered mental status. No shock or acute organ dysfunction. Acute urinary tract infection with cystitis. INSTRUCTIONS Your Current Medications: CONTINUE TAKING THE FOLLOWING MEDICATIONS: Advair Diskus Inhalation. BusPIRone HCl Oral. Fexofenadine HCl Oral. OLANZapine Oral. Primidone Oral. Spiriva HandiHaler Inhalation. Follow-up: Screening today revealed the patient's blood pressure to be in the normal range. (Electronically signed by Jackson Alanis Dr. 01/22/2017 22:17)
--- NOTE | 2017-01-22 22:18 | ED MED RECONCILIATION SUMMARY ---
Patient: STORMY PARRA Medication Reconciliation Report [facility] VisitID: [id number] [address] [place] [address] 71y, F Registration Date/Time: 01/22/2017 Weight: 65.7 kg Height/Length: 64 in. BMI: 24.9 ALLERGIES: Amoxicillin, Codeine, Penicillins, Sulfa Antibiotics The patient's Home Medications are listed below: CONTINUE TAKING THE FOLLOWING MEDICATIONS: Advair Diskus Inhalation BusPIRone HCl Oral Fexofenadine HCl Oral OLANZapine Oral Primidone Oral Spiriva HandiHaler Inhalation The source(s) of the original Home Medication information: patient's family member The following Medications were given to the patient in the Emergency Department: IV NS IV Fluids bolus 0, then 999 mL/hr, administered: 01/22/2017 4:51:00 PM Levofloxacin [IVPB] IVPB bolus 0, then 750 mg 100 mL/hr, administered: 01/22/2017 6:15:00 PM The following Medications were prescribed to the patient: None.
--- NOTE | 2017-01-22 22:18 | ED DISCHARGE INSTRUCTIONS ---
Patient: STORMY PARRA General Instructions [facility] VisitID: [id number] [address] [place] [address] 71y, F Registration Date/Time: 01/22/2017 Sepsis with altered mental status. No shock or acute organ dysfunction. Acute urinary tract infection with cystitis. INSTRUCTIONS Your Current Medications: CONTINUE TAKING THE FOLLOWING MEDICATIONS: Advair Diskus Inhalation. BusPIRone HCl Oral. Fexofenadine HCl Oral. OLANZapine Oral. Primidone Oral. Spiriva HandiHaler Inhalation. Follow-up: Screening today revealed the patient's blood pressure to be in the normal range. (Electronically signed by Jackson Alanis Dr. 01/22/2017 22:17)
--- NOTE | 2017-01-22 22:18 | ED MAR SUMMARY ---
..... Medication Administration Record [facility] [address] [place] [address] Patient: STORMY PARRA Visit ID: [id number] 71y, F Weight: 65.7 kg Height/Length: 64 in BMI: 24.9 ALLERGIES: Codeine, Amoxicillin, Sulfa Antibiotics, Penicillins Start 16:51 01/22/2017 Dano Dave RGabriel., Stop 18:00 01/22/2017 Dano Dave R.N. Medication Administered: IV NS (SALINE), Dose: IV Fluids over 1 hour(s), Rate: 999 mL/hr, Dispensed: 1000 mL bag, Site: #1 right. Medication Ordered: IV NS : initial bolus none -, then 1000 mL/hr for X1 (NOW). Start 18:15 01/22/2017 Dano Dave R.N., Stop 19:59 01/22/2017 Herminia Barton RGabriel. Medication Administered: LEVOFLOXACIN [IVPB], Dose: 750 mg IVPB over 1.5 hour(s), Rate: 100 mL/hr, Dispensed: 150 mL bag, Site: #1 right. Medication Ordered: Levofloxacin IV 750 mg/150 mL (NOW).
[2017-01-23 02:10] VITALS: BP 107/67
[2017-01-23] MEDS ORDERED: FEXOFENADINE H180 MG (03:47)
[2017-01-23] MEDS ORDERED: FLUTICASONE (03:48)
[2017-01-23] MEDS ORDERED: SPIRIVA (03:48)
--- NOTE | 2017-01-23 05:21 | Progress Note ---
Subjective General Note Date: January 23, 2017 Admission Date: January 22 2017 Hospital Day: 1 Status: Inpatient, ACU Advanced Directive: No CODE Room: 206 Admission History: The patient is a 71 yo White Female with a past medical history of asthma and obstructive lung disease allergies, coronary artery disease (status post CABG 7 vessel greater than 20 years ago), Parkinson's disease, dementia who is admitted with cough, dyspnea rapid breathing. Is also reported that she had a overall decline in activities of daily living baseline sharply over the past week. Patient was found to be more dyspneic if occult time with breathing decreased urination and intermittent diarrhea. Patient is admitted with criteria for SIRS ; urosepsis hypoxia on room air and respiratory distress. Addition functional decline in overall normal living baseline. For other history present illness, past medical history, family history, social history, review of systems, and admission physical examination please see the patient's history and physical examination and ER visit note in the patient's medical record. Subjective Patient is seen today at bedside. No reported acute overnight events. Physical Exam Vital Signs / I&Os Vital Signs Date Time Temp Pulse Resp B/P Pulse O2 O2 Flow FiO2 Ox Delivery Rate 01/23 0210 97.7 81 20 107/67 96 Nasal 3.0 Cannula 01/22 2359 Nasal 3.0 Cannula 01/22 2338 86 01/22 2209 3.0 01/22 2145 99.0 90 20 99/54 92 Nasal 3.0 Cannula I&O 01/22 0800 01/22 1600 01/23 0000 Intake Total 0 Output Total 0 Balance 0 General Appearance Cooperative LAB Results Laboratory Tests 01/22 01/22 01/22 01/22 1630 1630 1630 1655 Chemistry Plasma Sodium (136 - 145 mmol/L) 142 Plasma Potassium (3.5 - 5.1 mmol/L) 3.3 Plasma Chloride (98 - 107 mmol/L) 104 CO2 (Enzymatic) (21 - 32 mmol/L) 25 BUN (7 - 18 mg/dL) 12 Creatinine (0.6 - 1.3 mg/dL) 0.8 Est GFR ( Amer) (mL/min) >60 Est GFR (Non-Af Amer) (mL/min) >60 Glucose (70 - 110 mg/dL) 118 Lactic Acid (0.4 - 2.0 mmol/L) 1.3 Plasma Calcium (8.5 - 10.1 mg/dL) 8.2 Total Bilirubin (0.0 - 1.0 mg/dL) 0.6 AST (15 - 37 U/L) 22 ALT (12 - 78 U/L) 27 Alkaline Phosphatase (46 - 116 U/L) 108 Total Protein (6.4 - 8.2 g/dL) 6.2 Albumin (3.3 - 5.0 g/dL) 3.0 Procalcitonin (0 - 0.5 ng/mL) <0.5 Cancelled Coagulation D-Dimer, Quantitative (0.27 - 0.52 ug/mLFEU) 0.42 Hematology WBC (4.5 - 11.5 K/uL) 12.9 RBC (4.00 - 5.20 M/uL) 4.82 Hgb (12.0 - 16.0 gm/dL) 14.1 Hct (36.0 - 46.0 %) 44.5 MCV (80 - 100 fL) 92 MCH (26 - 34 pg) 29 RDW (11.6 - 14.8 %) 17.6 Gran % (53 - 90) 78.7 Lymph % (Auto) (25 - 40 %) 16.0 [place] % (Auto) (3 - 14 %) 5.3 Plt Count, EDTA (150 - 400 K/uL) 190 PUBS MCHC (31 - 37 g/dL) 32 01/22 01/22 1714 2350 Chemistry Procalcitonin (0 - 0.5 ng/mL) <0.5 Urines Urine Color YELLOW Urine Appearance SL CLOUDY Urine pH (5.0 - 8.0) 6.0 Ur Specific [place] (1.010 - 1.030) 1.020 Urine Protein (NEGATIVE) 1+ Urine Ketones (NEGATIVE) NEGATIVE Urine Blood (NEGATIVE) TRACE-INTACT Urine Nitrite (NEGATIVE) POSITIVE Urine Bilirubin (NEGATIVE) NEGATIVE Urine Urobilinogen (0.2 - 1.0 EU/dL) 2.0 Ur Leukocyte Esterase (NEGATIVE) POSITIVE Urine RBC (0 - 1 rbc/hpf) NONE SEEN Urine WBC (0 - 1 wbc/hpf) 75-100 Ur Epithelial Cells (0 - 5 EPI/hpf) 0-1 Urine Bacteria (NONE SEEN) FEW (1+) Urine Glucose (NEGATIVE) NEGATIVE Urine Comment CULTURE INDICATED Microbiology Date/Time Procedure - Status Source Growth 01/22 1714 Urine Culture - RECD URINE CATH 01/22 1655 Blood Culture - RECD BLOOD 01/22 1650 Blood Culture - RECD BLOOD Assessment and Plan Problem List 1. Hypoxia Plan Patient found to be hypoxic on room air and respiratory distress. Continue the O2 therapy. Patient has not needed advancement and oxygen support for respiratory support. Patient is appropriate on antibiotics. Patient has drug allergy to penicillins and sulfa drugs. Caution with additional antibiotic support. 2. Dyspnea Plan Patient found to be dyspneic with activity. Physical therapy assessment to review her ability to transfer and transition Consider short-term rehabilitation 3. SIRS with acute organ dysfunction due to infectious process Plan Patient met criteria for SIRS. Patient since has had marked improvement in parameters. She is no Longer febrile. Patient with near normalized respiratory effort and cardiac function 4. Sepsis Plan Potential sepsis; urological Following cultures. So far there is been no growth Continue with IV Levaquin Holding Rocephin. 5. Parkinsons Plan Parkinson's disease. Dementia with movement disorder Challenges with general overall care. Holding the primidone at this time; consider titrating the olanzapine. 6. Asthma Plan Airway control is better managed. Light dose of Solu-Medrol. Continue the IV antibiotics. Continue with the duo nebs every 6 hours 7. Dementia Plan Progressive mentioned. She is declining. General fortitude is lacking. 8. Hypokalemia Plan Patient found to be hypokalemic Replacement of potassium. Recheck in the a.m. Current status: Fair, improved Anticipated discharge date: Anticipated discharge in 1-2 days Anticipated discharge placement: Assisted living Patient care time: Time in chart review, patient interview, physical exam, CPOE, and care documentation: 35 mins Visit to patient today: 1 Complexity of care: Moderate DVT prophylaxis: Lovenox 40 mg subcutaneous daily E&M Codes Rounding: Inpt-High/11281
[2017-01-23 06:53] VITALS: BP 141/67
--- NOTE | 2017-01-23 07:27 | DIAGNOSTIC IMAGING REPORT ---
PROCEDURE: XR CHEST 1 VIEW INDICATION: Follow up pneumonia. TECHNIQUE: Portable AP view (0700 hours). COMPARISON: Compared to chest x-ray on 01/22/2017. FINDINGS: Allowing for suboptimal inspiration, there has been development of moderate bibasilar parenchymal changes (right greater than left). Findings are consistent with atelectasis or pneumonia. Status post median sternotomy. Heart and mediastinum are normal. Tortuous aorta. Thorax is normal. IMPRESSION: 1. Development of moderate bibasilar parenchymal changes, consistent with pneumonia (e.g., aspiration, bacterial). 2. Findings called to the floor and to Dr. Rigoberto Myers.
[2017-01-23 11:17] VITALS: BP 141/88
[2017-01-23 14:44] VITALS: BP 124/77
[2017-01-23 18:26] VITALS: BP 107/64
[2017-01-23 22:15] VITALS: BP 111/66
[2017-01-24 02:38] VITALS: BP 104/57
--- NOTE | 2017-01-24 06:20 | Progress Note ---
Subjective General Note Date: January 24, 2017 Admission Date: January 22 2017 Hospital Day: 3 Status: Inpatient, ACU Advanced Directive: No CODE Room: 206 Admission History: The patient is a 71 yo WF with a history of asthma (obstructive lung disease), allergies, coronary artery disease (s/p CABG 7), Parkinson's disease, dementia, admitted with cough, dyspnea (hypoxia). On admission she was at less than her baseline for standard of living. Initial care patient was initially started on O2 therapy for respiratory distress with hypoxia. Patient also started on antibiotic therapy. Antipsychotic medication was held due to excess somnolence. The O2 was weaned once patient responded. Patient's respiratory distress improved. Patient was evaluated through physical therapy. Discussed discharge planning. One blood culture growing GPC waiting identity and sensitivities. Awaiting the findings on the urine cultures Goals are to improve her previous baseline of functionality. For other history present illness, past medical history, family history, social history, review of systems, and admission physical examination please see the patient's history and physical examination and ER visit note in the patient's medical record. Subjective; Improvement. She had a overnight run of AFib with RVR, then returned to normal; according to nursing, this was during turning her in bed (trigger). Patient has not yet been able to get out of bed on her own. Patient is on physical therapy as schedule for Constitutional Denies: Chills. ENT Denies: Nose Pain. Respiratory SOB w/exertion. Denies: Wheezing. Physical Exam Vital Signs / I&Os Vital Signs Date Time Temp Pulse Resp B/P Pulse O2 O2 Flow FiO2 Ox Delivery Rate 01/24 0239 98.8 01/24 0238 60 14 104/57 92 Nasal 3.0 Cannula 01/24 0104 3.0 01/23 2215 98.2 80 20 111/66 94 Nasal 3.0 Cannula 01/23 2009 3.0 01/23 1826 98.2 102 18 107/64 88 Nasal 3.0 Cannula 01/23 1603 3.0 01/23 1444 98.1 82 16 124/77 89 Nasal 3.0 Cannula 01/23 1139 3.0 01/23 1117 98.6 87 16 141/88 94 Nasal Cannula 01/23 0756 Nasal 3.0 Cannula 01/23 0731 3.0 01/23 0653 98.2 85 18 141/67 94 Nasal 3.0 Cannula I&O 01/23 0800 01/23 1600 01/24 0000 Intake Total 120 480 Output Total 500 450 Balance -380 30 General Appearance Oriented X3, Cooperative HEENT EOMI Lungs Clear to auscultation Neck Supple Cardiovascular Normal S1 and S2 Abdomen Soft Extremities No cyanosis Neurological No lateralizing signs Psych/Mental Status Confused LAB Results Laboratory Tests 01/24 0530 Chemistry Plasma Sodium (136 - 145 mmol/L) 143 Plasma Potassium (3.5 - 5.1 mmol/L) 4.1 Plasma Chloride (98 - 107 mmol/L) 110 CO2 (Enzymatic) (21 - 32 mmol/L) 23 BUN (7 - 18 mg/dL) 11 Creatinine (0.6 - 1.3 mg/dL) 0.7 Est GFR ( Amer) (mL/min) >60 Est GFR (Non-Af Amer) (mL/min) >60 Glucose (70 - 110 mg/dL) 149 Plasma Calcium (8.5 - 10.1 mg/dL) 8.2 Hematology WBC (4.5 - 11.5 K/uL) 8.9 RBC (4.00 - 5.20 M/uL) 3.88 Hgb (12.0 - 16.0 gm/dL) 11.5 Hct (36.0 - 46.0 %) 34.6 MCV (80 - 100 fL) 89 MCH (26 - 34 pg) 30 RDW (11.6 - 14.8 %) 15.3 Neut % (Auto) (50 - 75 %) 78.2 Lymph % (Auto) (25 - 40 %) 15.7 [place] % (Auto) (3 - 14 %) 5.9 Eos % (Auto) (0 - 4 %) 0 Baso % (Auto) (0 - 2 %) 0.2 Plt Count, EDTA (150 - 400 K/uL) 221 PUBS MCHC (31 - 37 g/dL) 33 Assessment and Plan Problem List 1. Hypoxia Plan Patient is back to her normal status room air. Improvement overall. Albuterol ipratropium every 6 hours. Complete antibiotic course. Up and out of bed with activity today. 2. Dyspnea Plan She was dyspneic on with rest no longer hypoxic doing better. Continue antibiotic Up in bed to chair Incentive spirometry. 3. SIRS with acute organ dysfunction due to infectious process Plan Patient is no longer febrile no tachycardia or tachypnea. Blood culture showing 1 bottle with GPC awaiting identification and sensitivities Patient had 1 round of A. fib overnight; this was triggered by activity. Continue to monitor and watch. Complete antibiotic course. 4. Sepsis Plan Completing antibiotic course. Cultures; m1 bottle blood culture with GPC positive up-to-date. Awaiting identity and sensitivities. 5. Parkinsons Plan Multiple parkinsonian drugs were withheld. Plan to start back on her primidone today. 6. Dementia Plan Patient under appropriate care at home for supportive care around her dementia Continue to watch and follow until she reaches her previous baseline. Return to her previous home medication regimen Acute decline over the past week secondary to infection; now improving. Plans for a physical therapy assessment 7. Hypokalemia Plan The potassium levels and a normal range No changes. Watch and follow Current status: Fair poor Anticipated discharge date: Anticipated discharge 2-3 days Anticipated discharge placement: Home residence with Home health Patient care time: Time in chart review, patient interview, physical exam, CPOE, and care documentation: 35 mins Visit to patient today: 2 Complexity of care: Moderate DVT prophylaxis: Lovenox
[2017-01-24 06:42] VITALS: BP 114/62
[2017-01-24 10:16] VITALS: BP 106/69
[2017-01-24 14:55] VITALS: BP 142/73
[2017-01-24 18:57] VITALS: BP 134/66
[2017-01-24 22:51] VITALS: BP 134/72
[2017-01-25 02:14] VITALS: BP 119/66
[2017-01-25 06:17] VITALS: BP 122/58
--- NOTE | 2017-01-25 06:48 | Progress Note ---
Subjective General Note Date: January 25, 2017 Admission Date: January 22 2017 Hospital Day: 4 Status: Inpatient, ACU Advanced Directive: No CODE Room: 206 Admission History: The patient is a 71 yo WF with a history of asthma (obstructive lung disease), allergies, coronary artery disease (s/p CABG 7), Parkinson's disease, dementia, admitted with cough, dyspnea (hypoxia). On admission she was at less than her baseline for standard of living. Initial care patient was initially started on O2 therapy for respiratory distress with hypoxia. Patient also started on antibiotic therapy. Antipsychotic medication was held due to excess somnolence. The O2 was weaned once patient responded. Patient's respiratory distress improved. Patient was evaluated through physical therapy. Discussed discharge planning. One blood culture growing GPC waiting identity and sensitivities. Cultures from urine and one bottle blood showed staph coag negative. The staph coag negative is pansensitive. Patient is on appropriate therapy. Lethargic and excess somnolence; elected to hold the primidone and the olanzapine. Planning to have patient be transferred to [facility]. Difficulty with patient care at home. For other history present illness, past medical history, family history, social history, review of systems, and admission physical examination please see the patient's history and physical examination and ER visit note in the patient's medical record. Subjective; the patient was sleeping during initial part of the visit. Patient was arousable and alert. Patient sitting in chair. No other complaints Physical Exam Vital Signs / I&Os Vital Signs Date Time Temp Pulse Resp B/P Pulse O2 O2 Flow FiO2 Ox Delivery Rate 01/25 0617 98.8 55 14 122/58 93 Room Air 01/25 0332 0.0 01/25 0214 70 15 119/66 95 01/24 2251 99.0 76 17 134/72 94 Room Air 01/24 1857 99.0 84 18 134/66 93 Room Air 0.0 01/24 1549 Room Air 3.0 01/24 1455 98.1 80 16 142/73 93 Room Air 01/24 1016 106/69 01/24 1011 98.4 82 16 95 Nasal 3.0 Cannula 01/24 0831 93 3.0 01/24 0829 3.0 01/24 0755 Nasal 3.0 Cannula I&O 01/24 0800 01/24 1600 01/25 0000 Intake Total 2287 1756 1365 Output Total 850 1375 550 Balance 1437 381 815 General Appearance Cooperative, No acute distress, hypersomnolent Lungs Clear to auscultation, no wheeze rhonchi or rale Cardiovascular Normal S1 and S2 Abdomen Soft, No tenderness Extremities No cyanosis Psych/Mental Status Mental status normal Assessment and Plan Problem List 1. Sepsis Plan Patient was found to be septic on admission. She most likely uroseptic with coag negative staph aureus. The culture and the urine and also one bottle of the blood showing a coag- negative staph. Sensitive to Levaquin. 2. Dementia Plan Progressive dementia. Undetermined demential type. Patient with history of Parkinson's. Lewy body dementia is not ruled out The ability to care for patient at home is challenged. Plan to have patient transfer to SNF May require long-term care 3. Asthma Plan The airway is well controlled controlled. Duonebs as needed Unable to tolerate the Application of the Spiriva and Advair 4. SIRS with acute organ dysfunction due to infectious process Plan Patient met criteria for SIRS. Patient with sepsis. Most likely uroseptic. Current positive cocci staph aureus coag negative was grown out of urine and blood. Patient is on the appropriate antibiotic. Levaquin for the next 7 days. 5. Hypoxia Plan Patient was initially hypoxic on room air. Patient is better established with her airway. 6. Dyspnea Plan General improvement. Continue with the antibiotic During nebs as needed. Current status: fair poor Anticipated discharge date: Anticipated discharge 2 days Anticipated discharge placement: custodial facility vs home health Patient care time: Time in chart review, patient interview, physical exam, CPOE, and care documentation: 35 mins Visit to patient today: 2 Complexity of care: moderate DVT prophylaxis: lovenox E&M Codes Rounding: Inpt-High/93990
[2017-01-25 11:13] VITALS: BP 105/56
[2017-01-25 14:44] VITALS: BP 137/73
[2017-01-25 18:04] VITALS: BP 134/73
[2017-01-25 22:43] VITALS: BP 121/59
[2017-01-26 02:16] VITALS: BP 128/76
[2017-01-26 07:28] VITALS: BP 135/80
--- NOTE | 2017-01-26 08:54 | Progress Note ---
Subjective General Note Date: January 26, 2017 Admission Date: January 22 2017 Hospital Day: 5 Status: Inpatient, ACU Advanced Directive: No CODE Room: 206 Admission History: The patient is a 71 yo WF with a history of asthma (obstructive lung disease), allergies, coronary artery disease (s/p CABG 7), Parkinson's disease, dementia, admitted with cough, dyspnea (hypoxia). On admission she was at less than her baseline for standard of living. Initial care patient was initially started on O2 therapy for respiratory distress with hypoxia. Patient also started on antibiotic therapy. Antipsychotic medication was held due to excess somnolence. The O2 was weaned once patient responded. Patient's respiratory distress improved. Patient was evaluated through physical therapy. Discussed discharge planning. One blood culture growing GPC waiting identity and sensitivities. Cultures from urine and one bottle blood showed staph coag negative. The staph coag negative is pansensitive. Patient is on appropriate therapy. Lethargic and excess somnolence; elected to hold the primidone and the olanzapine. Discussed discharge planning includes options of home care versus transferring to SNF. Daughter who is primary group work program director challenged with certain level in transfers when her mother's not feeling well. Planning tot be transferred to [facility]. For other history present illness, past medical history, family history, social history, review of systems, and admission physical examination please see the patient's history and physical examination and ER visit note in the patient's medical record. Subjective; patient was awake, remained somnolent. No complaints today. Constitutional Denies: Chills, Weakness. Physical Exam Vital Signs / I&Os Vital Signs Date Time Temp Pulse Resp B/P Pulse O2 O2 Flow FiO2 Ox Delivery Rate 01/26 0742 1.0 01/26 0728 98.4 81 16 135/80 92 2.0 01/26 0216 98.6 75 16 128/76 92 Room Air 01/26 0100 Room Air 0.0 01/25 2243 98.2 88 18 121/59 91 Room Air 01/25 1804 97.9 81 20 134/73 95 Room Air 01/25 1645 Room Air 01/25 1444 97.5 77 18 137/73 95 Room Air 01/25 1113 97.5 85 14 105/56 94 Room Air I&O 01/25 0800 01/25 1600 01/26 0000 Intake Total 215 200 120 Output Total 745 317 9017 Balance -235 -300 -955 General Appearance Cooperative, Mild distress Lungs Clear to auscultation, sonorous rhonchi, no wheeze Cardiovascular Regular rate and rhythm Psych/Mental Status Mood normal LAB Results Laboratory Tests 01/26 0520 Chemistry Plasma Sodium (136 - 145 mmol/L) 142 Plasma Potassium (3.5 - 5.1 mmol/L) 3.1 Plasma Chloride (98 - 107 mmol/L) 106 CO2 (Enzymatic) (21 - 32 mmol/L) 29 BUN (7 - 18 mg/dL) 6 Creatinine (0.6 - 1.3 mg/dL) 0.6 Est GFR ( Amer) (mL/min) >60 Est GFR (Non-Af Amer) (mL/min) >60 Glucose (70 - 110 mg/dL) 98 Plasma Calcium (8.5 - 10.1 mg/dL) 7.8 Plasma Magnesium (1.8 - 2.4 mg/dL) 1.7 Total Bilirubin (0.0 - 1.0 mg/dL) 0.4 AST (15 - 37 U/L) 27 ALT (12 - 78 U/L) 52 Alkaline Phosphatase (46 - 116 U/L) 88 Total Protein (6.4 - 8.2 g/dL) 4.9 Albumin (3.3 - 5.0 g/dL) 2.3 Hematology WBC (4.5 - 11.5 K/uL) 7.9 RBC (4.00 - 5.20 M/uL) 4.18 Hgb (12.0 - 16.0 gm/dL) 12.4 Hct (36.0 - 46.0 %) 37.3 MCV (80 - 100 fL) 89 MCH (26 - 34 pg) 30 RDW (11.6 - 14.8 %) 15.6 Neut % (Auto) (50 - 75 %) 51.0 Lymph % (Auto) (25 - 40 %) 35.2 [place] % (Auto) (3 - 14 %) 13.5 Eos % (Auto) (0 - 4 %) 0.2 Baso % (Auto) (0 - 2 %) 0.1 Plt Count, EDTA (150 - 400 K/uL) 230 PUBS MCHC (31 - 37 g/dL) 33 Assessment and Plan Problem List 1. Sepsis Plan Admitted with sepsis. Gram-positive cocci in blood and urine Complete 7 days total of Levaquin 2. Dementia Plan History of decline prior to admission. History of Parkinson's possibly Lewy body dementia May require higher level of memory care upon discharge. 3. Asthma Plan Improved airway control. Continue with the DuoNeb's. Stable 4. SIRS with acute organ dysfunction due to infectious process Plan Met SIRS criteria on admission. Rapid positive cocci grew out in the urine and blood Completing 10 days total of antibiotic. Likely uroseptic. Continue with the Levaquin for the next 6 days. 5. Hypoxia Plan No longer required higher demands of O2. Titration off of the O2. 6. Dyspnea Plan Patient was dyspneic on admission and rest. This has since resolved; patient's airways much improved Current status: fair poor Anticipated discharge date: Anticipated discharge 2 days Anticipated discharge placement: [facility] facility vs home health Patient care time: Time in chart review, patient interview, physical exam, CPOE, and care documentation: 35 mins Visit to patient today: 2 Complexity of care: moderate DVT prophylaxis: lovenox E&M Codes Rounding: Inpt-Moderate/51795
[2017-01-26 10:31] VITALS: BP 129/83
[2017-01-26 14:17] VITALS: BP 146/86
[2017-01-26 17:38] VITALS: BP 148/81
[2017-01-26 22:06] VITALS: BP 143/89
[2017-01-27 03:21] VITALS: BP 143/75
[2017-01-27 06:45] VITALS: BP 133/76
--- NOTE | 2017-01-27 08:38 | Progress Note ---
Subjective General Note Date: January 27, 2017 Admission Date: January 22 2017 Hospital Day: 6 Status: Inpatient, ACU Advanced Directive: No CODE Room: 206 Admission History: The patient is a 71 yo WF with a history of asthma (obstructive lung disease), allergies, coronary artery disease (s/p CABG 7), Parkinson's disease, dementia, admitted with cough, dyspnea (hypoxia). On admission she was at less than her baseline for standard of living. Initial care patient was initially started on O2 therapy for respiratory distress with hypoxia. Patient also started on antibiotic therapy. Antipsychotic medication was held due to excess somnolence. The O2 was weaned once patient responded. Patient's respiratory distress improved. Patient was evaluated through physical therapy. Discussed discharge planning. One blood culture growing [facility] waiting identity and sensitivities. Cultures from urine and one bottle blood showed staph coag negative. The staph coag negative is pansensitive. Patient is on appropriate therapy. Lethargic and excess somnolence; elected to hold the primidone and the olanzapine. Discussed discharge planning includes options of home care versus transferring to SNF. Daughter who is primary manager servicing challenged with certain level in transfers when her mother's not feeling well; given this fact the social network is planning on discharge to SNF Planning tot be transferred to [facility]. Speech and swallow evaluation was performed. Questions regarding her ability to maintain adequate oral intake based on her level of somnolence. Patient is to remain nothing by mouth until further assessments by speech and swallow. The primidone along with the olanzapine was on day 4 of hospitalization. There is partial response with patient's ability to maintain alertness. For other history present illness, past medical history, family history, social history, review of systems, and admission physical examination please see the patient's history and physical examination and ER visit note in the patient's medical record. Subjective; Remains hypersomnolent; oxygen saturations are between 90 and 94% room air. Awakens to stimulation. Physical Exam Vital Signs / I&Os Vital Signs Date Time Temp Pulse Resp B/P Pulse O2 O2 Flow FiO2 Ox Delivery Rate 01/27 0645 98.1 79 24 133/76 92 Room Air 0.0 01/27 0321 99.3 80 19 143/75 92 Room Air 01/27 0042 Room Air 01/26 2206 99.9 92 18 143/89 92 Room Air 01/26 1738 99.3 96 16 148/81 91 Room Air 01/26 1640 94 Room Air 01/26 1630 Room Air 01/26 1522 1.0 01/26 1417 99.1 80 16 146/86 94 Nasal 1.0 Cannula 01/26 1105 1.0 01/26 1031 98.4 82 16 129/83 94 Nasal 1.0 Cannula I&O 01/26 0800 01/26 1600 01/27 0000 Intake Total 0 463 Output Total 850 1050 Balance -850 -587 General Appearance Cooperative, somnolence. Lungs Normal air movement, no wheeze rales or rhonchi Cardiovascular Normal S1 and S2, No murmurs, gallops, rubs Abdomen Soft Psych/Mental Status Confused LAB Results Laboratory Tests 01/27 0518 Chemistry Plasma Sodium (136 - 145 mmol/L) 145 Plasma Potassium (3.5 - 5.1 mmol/L) 3.6 Plasma Chloride (98 - 107 mmol/L) 108 CO2 (Enzymatic) (21 - 32 mmol/L) 28 BUN (7 - 18 mg/dL) 6 Creatinine (0.6 - 1.3 mg/dL) 0.6 Est GFR ( Amer) (mL/min) >60 Est GFR (Non-Af Amer) (mL/min) >60 Glucose (70 - 110 mg/dL) 101 Plasma Calcium (8.5 - 10.1 mg/dL) 8.2 Plasma Magnesium (1.8 - 2.4 mg/dL) 2.3 Assessment and Plan Problem List 1. Dementia Plan There is a level of dementia; precludes to a longer than expected hospital stay. Patient is an element of poor responsiveness and hypersomnolence. Likely the patient will be discharged to SNF. The resources at home that she came from our limited. Continue to monitor and follow. 2. Parkinsons Plan Minimal therapy for Parkinson's Patient was on primidone for her Parkinson's; but this is been held due to hypersomnolence.. Patient has been on multiple parkinsonian drugs in the past but did not tolerate well. 3. Hypoxia Plan Patient hypoxic on room air on admission. This is since improved. Patient having intermittent periods of time when she is saturating below 90s on room air. Patient does not have oxygen support at home. Patient with signs of obstruction overnight. 4. Sepsis Plan Completing full course of antibiotics. Gram-positive cocci in the blood and urine. Cultured as a Coag negative staph aureus. Treatment has been appropriate. Currently on Levaquin; dose, 6 out of 10. Current status: fair poor Anticipated discharge date: Anticipated discharge 2 days Anticipated discharge placement: [facility] facility Patient care time: Time in chart review, patient interview, physical exam, CPOE, and care documentation: 35 mins Visit to patient today: 1 Complexity of care: moderate DVT prophylaxis: lovenox E&M Codes Rounding: Inpt-Moderate/[id number]
[2017-01-27 10:14] VITALS: BP 131/71
[2017-01-27 14:23] VITALS: BP 136/64
[2017-01-27 18:46] VITALS: BP 124/74
[2017-01-27 22:20] VITALS: BP 140/85
[2017-01-28 02:25] VITALS: BP 132/80
[2017-01-28 07:22] VITALS: BP 140/77
[2017-01-28 10:52] VITALS: BP 125/74
--- NOTE | 2017-01-28 12:36 | Provider's Discharge Care Plan ---
Problem, Goal, Plan Problem List 1. Dyspnea Instructions: take inhalation meds as prescribed 2. Parkinsons Instructions: Take meds as directed 3. Asthma 4. Dementia Instructions: Take meds as directed
[2017-01-28] MEDS ORDERED: LEVOFLOXACIN500 MG PO (12:41)
--- NOTE | 2017-01-28 12:41 | Discharge Summary ---
Discharge Summary Report Admit Date 01/22/17 Discharge Date 01/28/17 Admission Diagnosis cough and hypoxia Discharge Diagnosis cough, hypoxia, exacerbation of dementia Brief History please refer to admission H&P Hospital Course The patient is a 71 yo WF with a history of asthma (obstructive lung disease), allergies, coronary artery disease (s/p CABG 7), Parkinson's disease, dementia, admitted with cough, dyspnea (hypoxia). On admission she was at less than her baseline for standard of living. Initial care patient was initially started on O2 therapy for respiratory distress with hypoxia. Patient also started on antibiotic therapy. Antipsychotic medication was held due to excess somnolence. The O2 was weaned once patient responded. Patient's respiratory distress improved. Patient was evaluated through physical therapy. Discussed discharge planning. One blood culture growing [facility] waiting identity and sensitivities. Cultures from urine and one bottle blood showed staph coag negative. The staph coag negative is pansensitive. Patient is on appropriate therapy. Lethargic and excess somnolence; elected to hold the primidone and the olanzapine. Discussed discharge planning includes options of home care versus transferring to SNF. Daughter who is primary billet heater operator challenged with certain level in transfers when her mother's not feeling well; given this fact the social network is planning on discharge to SNF Planning tot be transferred to [facility]. Speech and swallow evaluation was performed. Questions regarding her ability to maintain adequate oral intake based on her level of somnolence. Patient is to remain nothing by mouth until further assessments by speech and swallow. The primidone along with the olanzapine was on day 4 of hospitalization. There is partial response with patient's ability to maintain alertness. Due to patients decreased alertness, patient was also seen to have potentially difficulty swallowing. Patient initially was seen to be too sedated to swallow, however when patient is awake and as alert as she can be, she is seen to swallow without difficulty. Patient is currently able to swallow without difficulty and can be discharge to assisted living facility. General Appearance Cooperative, No acute distress HEENT PERRLA, Mucous membran moist/pink Lungs Normal air movement Cardiovascular Normal S1, Normal S2 Abdomen Soft, No tenderness Skin No Breakdown Neurological Normal tone, Sensation intact, Cranial nerves 3-12 NL Discharge Instructions/Meds - dc to assited living facility - follow up with speech therapy and physical therapy - take medications as prescribed
--- NOTE | 2017-01-28 12:41 | Discharge Summary ---
Discharge Summary Report Admit Date 01/22/17 Discharge Date 01/28/17 Admission Diagnosis cough and hypoxia Discharge Diagnosis cough, hypoxia, exacerbation of dementia Brief History please refer to admission H&P Hospital Course The patient is a 71 yo WF with a history of asthma (obstructive lung disease), allergies, coronary artery disease (s/p CABG 7), Parkinson's disease, dementia, admitted with cough, dyspnea (hypoxia). On admission she was at less than her baseline for standard of living. Initial care patient was initially started on O2 therapy for respiratory distress with hypoxia. Patient also started on antibiotic therapy. Antipsychotic medication was held due to excess somnolence. The O2 was weaned once patient responded. Patient's respiratory distress improved. Patient was evaluated through physical therapy. Discussed discharge planning. One blood culture growing [facility] waiting identity and sensitivities. Cultures from urine and one bottle blood showed staph coag negative. The staph coag negative is pansensitive. Patient is on appropriate therapy. Lethargic and excess somnolence; elected to hold the primidone and the olanzapine. Discussed discharge planning includes options of home care versus transferring to SNF. Daughter who is primary stress test technician challenged with certain level in transfers when her mother's not feeling well; given this fact the social network is planning on discharge to SNF Planning tot be transferred to [facility]. Speech and swallow evaluation was performed. Questions regarding her ability to maintain adequate oral intake based on her level of somnolence. Patient is to remain nothing by mouth until further assessments by speech and swallow. The primidone along with the olanzapine was on day 4 of hospitalization. There is partial response with patient's ability to maintain alertness. Due to patients decreased alertness, patient was also seen to have potentially difficulty swallowing. Patient initially was seen to be too sedated to swallow, however when patient is awake and as alert as she can be, she is seen to swallow without difficulty. Patient is currently able to swallow without difficulty and can be discharge to assisted living facility. General Appearance Cooperative, No acute distress HEENT PERRLA, Mucous membran moist/pink Lungs Normal air movement Cardiovascular Normal S1, Normal S2 Abdomen Soft, No tenderness Skin No Breakdown Neurological Normal tone, Sensation intact, Cranial nerves 3-12 NL Discharge Instructions/Meds - dc to assited living facility - follow up with speech therapy and physical therapy - take medications as prescribed
== END 2017-01-28 15:00 | disposition home or self-care (01) | DRG 872 ==
LOC: ED SRH 16:39 → TRANS SRH 19:07 → ACUTE2 SRH 21:45
PROVIDERS: ADMIT Pediatrics
PROC: 0T9B70Z Drainage of Bladder with Drainage Device, Via Natural or Artificial Opening (ICD-10-PCS; principal; 2017-01-22)
DX: A41.1 Sepsis due to other specified staphylococcus (principal); N39.0 Urinary tract infection, site not specified; B95.7 Other staphylococcus as the cause of diseases classified elsewhere; J06.9 Acute upper respiratory infection, unspecified; J45.909 Unspecified asthma, uncomplicated; R09.02 Hypoxemia; E87.6 Hypokalemia; I48.91 Unspecified atrial fibrillation; R40.0 Somnolence; T42.6X5A Adverse effect of other antiepileptic and sedative-hypnotic drugs, initial encounter; G20 Parkinson's disease; F02.80 Dementia in other diseases classified elsewhere, unspecified severity, without behavioral disturbance, psychotic disturbance, mood disturbance, and anxiety
CPT/HCPCS: 20011; 83741; 83805; 85241; 85244; 90004; 90047; 90065; 90070; 90074; 90100; 90469; 91556; 91672; 92031; 92720; 93004; 94060; 95059